=== PATIENT | female | born 1965 | race Caucasian/White ===

== ENCOUNTER 2024-06-27 16:59 | Inpatient (IN) | payer OTHER ==
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
[2024-06-27 17:30] LABS: ALT 11 U/L (4-34); AST 25 U/L (14-36); African American GFR (CKD) >90 (>60 ml/min/1.73 sqM); Albumin 2.9 g/dL (3.5-5.0); Alkaline Phosphatase 79 U/L (38-126); Anion Gap 6 mmol/L; Blood Urea Nitrogen 18 mg/dL (7-17); Calcium 7.3 mg/dL (8.4-10.2); Carbon Dioxide 16 mmol/L (22-30); Chloride 117 mmol/L (98-107); Glucose 149 mg/dL (74-99); Lipase 1709 U/L (23-300); Magnesium 1.5 mg/dL (1.6-2.3); Non-African American GFR(CKD) >90 (>60 ml/min/1.73 sqM); Potassium 2.9 mmol/L (3.5-5.1); Sodium 139 mmol/L (137-145); Total Bilirubin 0.3 mg/dL (0.2-1.3); Total Protein 5.5 g/dL (6.3-8.2)
[2024-06-27 17:41] LABS: NT-Pro-B-Type Natriuretic Pept 422 pg/mL
[2024-06-27 17:50] LABS: INR 0.9 (<1.2); Prothrombin Time 9.9 sec (10.0-12.5)
[2024-06-27] MEDS ORDERED: LORazepam 1 MG TAB PO PRN ×3 (17:59)
[2024-06-27] MEDS ORDERED: LORazepam 0.5 MG TAB PO PRN (17:59)
[2024-06-27] MEDS ORDERED: NALOXONE 0.4 MG/ML 1 ML VIAL IV PRN (17:59)
[2024-06-27] MEDS ORDERED: LORazepam 2 MG/ML INJ IV PRN ×3 (17:59)
[2024-06-27 18:03] LABS: Basophils # (A) 0.1 k/uL (0-0.2); Basophils % (A) 1 %; Eosinophils # (A) 0.1 k/uL (0-0.7); Eosinophils % (A) 1 %; HCT 36.5 % (34.0-46.0); HGB 11.8 gm/dL (11.4-16.0); Lymphocytes # (A) 1.7 k/uL (1.0-4.8); Lymphocytes % (A) 17 %; MCH 30.8 pg (25.0-35.0); MCHC 32.4 g/dL (31.0-37.0); MCV 95.2 fL (80.0-100.0); Mean Platelet Volume 8.7; Monocytes # (A) 0.3 k/uL (0-1.0); Monocytes % (A) 3 %; Neutrophils # (A) 7.7 k/uL (1.3-7.7); Neutrophils % (A) 77 %; Platelet Count 218 k/uL (150-450); RBC 3.83 m/uL (3.80-5.40); RDW 13.3 % (11.5-15.5)
[2024-06-27] MEDS: MAGNESIUM OXIDE 400 MG TAB PO STA ×2 (18:30)
[2024-06-27] MEDS: LORazepam 2 MG/ML INJ IV STA (18:30)
[2024-06-27] MEDS: SODIUM CHLORIDE 0.9% 1,000 ML IV STA (18:31)
[2024-06-27] MEDS: MAGNESIUM SULFATE-D5W PMX 1 GM in DEXTROSE/WATER 1 100ML.BAG IVPB ONE (18:31)
[2024-06-27] MEDS: SODIUM CHLORIDE 0.9% 500 ML 500 ML IV STA (18:32)
[2024-06-27] MEDS: ONDANSETRON 4 MG/2 ML VIAL IVP PRN (18:32)
[2024-06-27] MEDS: SODIUM CHLORIDE 0.9% 1,000 ML IV SCH (18:32)
[2024-06-27] MEDS: POTASSIUM BICARBONATE/CIT AC 20 MEQ TABLET.EFF PO ONE (18:37)
--- NOTE | 2024-06-27 19:22 | CT ---
EXAMINATION TYPE: CT angio chest DATE OF EXAM: 06/27/2024 7:00 PM COMPARISON: None CLINICAL INDICATION: Female, 58 years old with history of cp; Pt c/o substernal chest pain started ap louisa 30minutes ago. Significant cardiac history, VT, stents and bypass. TECHNIQUE/CONTRAST: CTA scan of the thorax is performed with IV Contrast, patient injected with 100 ml mL of Isovue 370, MIP images are created and reviewed these are created on a separate workstation.. CT DLP: Combined DLP of 1043.1 mGycm, Automated exposure control for dose reduction was used. FINDINGS: Lungs/Pleura: No evidence of focal consolidation, pleural effusion or pneumothorax. Mild paraseptal a nd centrilobular emphysema changes. Airway: Large airways are patent. Heart: Heart is within normal limits for size. Coronary stents and calcifications. Vasculature: There is no evidence for a filling defect within the pulmonary vasculature to suggest acute pulmonary embo lism. The pulmonary artery is of normal size. Mediastinum: No gross evidence of adenopathy. Musculoskeletal: No acute osseous abnormalities, sternotomy wires present. Soft Tissues/lymph nodes: Unremarkable. Lower neck: No significant findings. Upper Abdomen: No significant findings. IMPRESSION: 1. No evidence of pulmonary embolism. 2. No evidence for acute thoracic process. [facility], , 06/27/2024 7:20 PM
--- NOTE | 2024-06-27 19:24 | CT ---
EXAMINATION TYPE: CT abdomen pelvis w con DATE OF EXAM: 06/27/2024 7:00 PM COMPARISON: None CLINICAL INDICATION: Female, 58 years old with history of pancreatitis; Pt c/o substernal chest pain started aprox 30minutes ago. Significant cardiac history, NM, stents and bypass. TECHNIQUE: Axial CT abdomen pelvis w con;Sagittal and coronal reformats were created on a separate w orkstation. Contrast used:100 ml mL of Isovue 370 with IV Contrast, (none if empty) Oral contrast used: without Oral Contrast (none if empty) CT DLP: Combined DLP of 1043.1 mGycm, Automated exposure control for dose reduction was used. FINDINGS: LOWER CHEST: Unremarkable ABDOMEN LIVER: Unremarkable GALLBLADDER AND BILE DUCTS: Unremarkable. PANCREAS: No evidence or peripancreatic fat stranding. SPLEEN: Unremarkable. ADRENAL GLANDS: Unremarkable. KIDNEYS AND URETERS: No evidence of hydronephrosis or renal calculus. The ureters are unremarkable. PELVIS BLADDER: No evidence for wall thickening or mass given limitations of exam. REPRODUCTIVE: Unremarkable. ABDOMEN & PELVIS STOMACH AND BOWEL: No evidence of bowel obstruction. The appendix is normal. PERITONEUM/RETROPERITONEUM: No evidence of pneumoperitoneum or free fluid. VASCULATURE: No evidence of aortic aneurysm. MUSCULOSKELETAL: No acute osseous abnormalities LYMPH NODES: No gross evidence for lymphadenopathy. SOFT TISSUE/ABDOMINAL WALL: Tiny fat-containing umbilical hernia. IMPRESSION: No evidence for acute abdominal process. Pancreas has a normal appearance. [facility], , 06/27/2024 7:22 PM
--- NOTE | 2024-06-27 20:38 | US ---
EXAMINATION TYPE: US gallbladder DATE OF EXAM: 06/27/2024 COMPARISON: CT today CLINICAL INDICATION: Female, 58 years old with history of pain; Patient states chest pain. Patient st ates she recently ate TECHNIQUE: Grayscale and color Doppler imaging of the right upper quadrant was performed. FINDINGS: EXAM MEASUREMENTS: Liver Length: 15.9 cm Gallbladder Wall: 0.2 cm CBD: 0.4 cm Right Kidney: 10.1 x 4.5 x 4.4 cm RUSSIAN HISTORY PROFESSOR NOTES:Limited due to overlying gas and patient unable to hold breath Pancreas: Obscured by bowel gas Liver: wnl Gallbladder: Slightly contracted due to post prandial status, wnl as best seen Evidence for sonographic Cotto's sign: No CBD: wnl Right Kidney: wnl as best seen IMPRESSION: No evidence for acute process. [facility], , 06/27/2024 8:35 PM
[2024-06-27] MEDS: HEPARIN SODIUM 1,000 UN/ML (10ML VL) IV ONE (22:23)
[2024-06-27] MEDS: HEPARIN SOD,PORK IN 0.45% NACL 25,000 UNIT in 0.45% NACL 1 250ML.BAG IV SCH (22:24)
[2024-06-27] MEDS: ASPIRIN 81 MG PO STA (22:26)
[2024-06-28] MEDS: MORPHINE SULFATE 4 MG/ML SYRINGE IV PRN (00:09)
[2024-06-28 05:08] LABS: Basophils # (A) 0.1 k/uL (0-0.2); Basophils % (A) 1 %; Eosinophils # (A) 0.2 k/uL (0-0.7); Eosinophils % (A) 2 %; HCT 41.2 % (34.0-46.0); HGB 13.7 gm/dL (11.4-16.0); Lymphocytes # (A) 2.6 k/uL (1.0-4.8); Lymphocytes % (A) 25 %; MCH 31.2 pg (25.0-35.0); MCHC 33.4 g/dL (31.0-37.0); MCV 93.4 fL (80.0-100.0); Mean Platelet Volume 8.7; Monocytes # (A) 0.5 k/uL (0-1.0); Monocytes % (A) 5 %; Neutrophils # (A) 6.7 k/uL (1.3-7.7); Neutrophils % (A) 66 %; Platelet Count 266 k/uL (150-450); RBC 4.41 m/uL (3.80-5.40); RDW 13.1 % (11.5-15.5); WBC 10.1 k/uL (3.8-10.6)
[2024-06-28 05:21] LABS: ALT 11 U/L (4-34); AST 29 U/L (14-36); African American GFR (CKD) >90 (>60 ml/min/1.73 sqM); Albumin 3.7 g/dL (3.5-5.0); Alkaline Phosphatase 96 U/L (38-126); Anion Gap 3 mmol/L; Blood Urea Nitrogen 17 mg/dL (7-17); Calcium 8.3 mg/dL (8.4-10.2); Carbon Dioxide 22 mmol/L (22-30); Chloride 115 mmol/L (98-107); Glucose 85 mg/dL (74-99); Magnesium 2.7 mg/dL (1.6-2.3); Non-African American GFR(CKD) 80 (>60 ml/min/1.73 sqM); Potassium 4.3 mmol/L (3.5-5.1); Sodium 140 mmol/L (137-145); Total Bilirubin 0.4 mg/dL (0.2-1.3); Total Protein 6.5 g/dL (6.3-8.2)
[2024-06-28] MEDS: HEPARIN SODIUM 1,000 UN/ML (10ML VL) IV PRN (05:22)
[2024-06-28] MEDS ORDERED: ASPIRIN 325 MG TAB PO SCH (09:00)
[2024-06-28] MEDS: NITROGLYCERIN OINT 1 INCH/GM PACKET TOPICAL SCH (09:32)
[2024-06-28] MEDS: THIAMINE 100 MG TAB PO SCH (09:32)
[2024-06-28] MEDS: lisinopriL 10 MG TAB PO SCH (09:32)
[2024-06-28] MEDS: MULTIVITAMINS, THERA 1 EACH TAB PO SCH (09:32)
[2024-06-28] MEDS: ASPIRIN 81 MG PO SCH (09:32)
[2024-06-28] MEDS: FOLIC ACID 1 MG TAB PO SCH (09:32)
[2024-06-28] MEDS: PANTOPRAZOLE 40 MG/10 ML VIAL IV SCH (09:33)
[2024-06-28] MEDS: SERTRALINE 100 MG TAB PO SCH (10:25)
[2024-06-28] MEDS: LEVOTHYROXINE 137 MCG TAB PO SCH (10:25)
[2024-06-28] MEDS: FLUTICASONE NASAL 50MCG/SPRAY 16GM BTL EA NOSTRIL SCH (10:34)
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
[2024-06-28 11:38] LABS: African American GFR (CKD) 86 (>60 ml/min/1.73 sqM); Amylase 85 U/L (30-110); Anion Gap 4 mmol/L; Blood Urea Nitrogen 14 mg/dL (7-17); Calcium 8.8 mg/dL (8.4-10.2); Carbon Dioxide 27 mmol/L (22-30); Chloride 112 mmol/L (98-107); Glucose 88 mg/dL (74-99); Lipase 196 U/L (23-300); Non-African American GFR(CKD) 74 (>60 ml/min/1.73 sqM); Sodium 143 mmol/L (137-145)
--- NOTE | 2024-06-28 13:45 | XR ---
EXAMINATION TYPE: XR chest 1V portable DATE OF EXAM: 06/28/2024 1:39 PM COMPARISON: None CLINICAL INDICATION: Female, 58 years old with history of chf; TECHNIQUE: XR chest 1V portable Frontal view of the chest. FINDINGS: Lungs/Pleura: There is no evidence of pleural effusion, focal consolidation, or pneumothorax. Pulmonary vascularity: Unremarkable. Heart/mediastinum: Cardiomediastinal silhouette is unremarkable. Musculoskeletal: No acute osseous pathology. IMPRESSION: No acute cardiopulmonary disease/process. [facility], , 06/28/2024 1:42 PM
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
[2024-06-28] MEDS: ATORVASTATIN 80 MG TAB PO SCH (20:53)
[2024-06-28] MEDS ORDERED: NON FORMULARY DRUG (Rosuvastatin Calcium [Crestor] 40 MG Tablet) PO SCH (21:00)
[2024-06-29 07:36] LABS: Basophils % (A) 0 %; Eosinophils # (A) 0.1 k/uL (0-0.7); Eosinophils % (A) 1 %; HGB 13.4 gm/dL (11.4-16.0); Lymphocytes % (A) 15 %; MCH 29.8 pg (25.0-35.0); MCHC 31.9 g/dL (31.0-37.0); MCV 93.5 fL (80.0-100.0); Mean Platelet Volume 8.8; Monocytes # (A) 0.4 k/uL (0-1.0); Monocytes % (A) 3 %; Neutrophils # (A) 10.4 k/uL (1.3-7.7); Neutrophils % (A) 80 %; Platelet Count 267 k/uL (150-450); RBC 4.49 m/uL (3.80-5.40)
[2024-06-29] MEDS ORDERED: NITROGLYCERIN SL TABS 0.4 MG TAB SUBLINGUAL PRN ×2 (09:03→13:33)
[2024-06-29] MEDS ORDERED: ALPRAZolam 0.5 MG TAB PO PRN (09:03)
[2024-06-29] MEDS: LORATADINE 10 MG TAB PO SCH (09:32)
[2024-06-29] MEDS: ASPIRIN 325 MG TAB PO STA (09:32)
[2024-06-29] MEDS: ALPRAZolam 0.25 MG TAB PO PRN (09:32)
[2024-06-29] MEDS: ATORVASTATIN 80 MG TAB PO STA (09:32)
[2024-06-29 09:34] LABS: African American GFR (CKD) >90 (>60 ml/min/1.73 sqM); Anion Gap 8 mmol/L; Blood Urea Nitrogen 14 mg/dL (7-17); Calcium 8.8 mg/dL (8.4-10.2); Carbon Dioxide 20 mmol/L (22-30); Chloride 113 mmol/L (98-107); Glucose 93 mg/dL (74-99); Non-African American GFR(CKD) 84 (>60 ml/min/1.73 sqM); Potassium 4.2 mmol/L (3.5-5.1); Sodium 141 mmol/L (137-145)
[2024-06-29] MEDS: SODIUM CHLORIDE 0.9% 1,000 ML in EMPTY BAG 1 BAG IV SCH ×2 (09:34→23:37)
--- NOTE | 2024-06-29 09:40 | NM ---
EXAMINATION TYPE: NM hepatobiliary w CCK DATE OF EXAM: 06/29/2024 8:50 AM COMPARISON: 06/27/2024 CLINICAL INDICATION:Female, 58 years old with history of RUQ pain; TECHNIQUE: The patient was given 5.1 mCi of Technetium 99m-Mebrofenin as a radiotracer and multiple scintigraphic images were obtained of the abdomen. Gallbladder function was also assessed after the a dministration of 1.4 mcg of Kinevac (cholecystokinin) and additional scintigraphic images were obtain ed of the abdomen. A region of interest was drawn over the gallbladder and a timing activity curve wa s generated. The gallbladder ejection fraction was calculated. FINDINGS: Normal uptake of radiotracer was identified within the liver with excretion into the hepatic and comm on biliary ducts within 12 min . There was normal progressive washout of the liver over the course of the study. Radiotracer uptake within the gallbladder at 10 minutes as well as small bowel activity w as identified at 34 minutes. Maximum calculated gallbladder ejection fraction is: 4% at 27minutes (Normal gallbladder ejection fraction is > 35%) IMPRESSION: 4% ejection fraction, ejection fraction of <33% (may be 35 to 40% depending on different protocols at different institutions) after 60 min is indicative of impaired gallbladder emptying and gallbladder dysfunction. [facility], , 06/29/2024 9:37 AM
[2024-06-29] MEDS: SODIUM CHLORIDE 0.9% 1,000 ML IV ONE (11:52)
[2024-06-29] MEDS: HEPARIN SODIUM,PORCINE 10,000 UNIT in SODIUM CHLORIDE 0.9% 1,000 ML IRRIGATION ONE (11:53)
[2024-06-29] MEDS: HEPARIN SODIUM,PORCINE (1 ML) 2,500 UNIT in SODIUM CHLORIDE 0.9% 250 ML IRRIGATION ONE (11:53)
[2024-06-29] MEDS: fentaNYL (PF) 50 MCG/ML 2 ML AMP IVP ONE (11:54)
[2024-06-29] MEDS: LIDOCAINE 1% INJ 10MG/ML (20 ML MDV) SQ ONE (12:01)
[2024-06-29] MEDS: MIDAZOLAM 2 MG/2 ML VIAL IVP ONE (12:03)
[2024-06-29] MEDS: VERAPAMIL SYRINGE (5 MG/10 ML) INTRAARTER ONE (12:06)
[2024-06-29] MEDS: HEPARIN SODIUM 1,000 UN/ML (10ML VL) IVP ONE ×4 (12:11→12:50)
[2024-06-29] MEDS: CLOPIDOGREL 75 MG TAB PO ONE (12:19)
[2024-06-29] MEDS: IOPAMIDOL-370 100ML BTL INJ ONE ×2 (13:19)
--- NOTE | 2024-06-29 13:24 | P.PN ---
Subjective Progress Note Date: 06/29/24 SURGICAL PROGRESS NOTE CHIEF COMPLAINT: Chest pain HISTORY OF PRESENT ILLNESS: Patient scheduled for heart catheterization today with cardiology service. Patient denies any abdominal pain. Denies any nausea or vomiting. HIDA scan completed and reports EF of 4% is indicative of impaired gallbladder emptying and gallbladder dysfunction. PHYSICAL EXAM: VITAL SIGNS: Reviewed. GENERAL: Well-developed in no acute distress. ABDOMEN: Soft. Nondistended. Nontender. NEUROLOGIC: Alert and oriented. Cranial nerves II through XII grossly intact. ASSESSMENT: 1. Hypokinetic gallbladder with a EF of 4% 2. Non-ST elevated AK PLAN: -Patient is tentatively boarded for laparoscopic cholecystectomy on Wednesday with Dr. Cleveland pending cardiac clearance Physician Cad Detailer note has been reviewed by physician. Signing provider agrees with the documented findings, assessment, and plan of care. Objective - Vital Signs Vital signs: Vital Signs Temp 98.3 F 06/29/24 11:03 Pulse 54 L 06/29/24 11:03 Resp 16 06/29/24 11:03 BP 122/57 06/29/24 11:03 Pulse Ox 98 06/29/24 11:05 FiO2 Intake & Output 06/28/24 06/29/24 06/29/24 18:59 06:59 18:59 Intake Total 68.373 122.849 410 Balance 68.373 122.849 410 Weight 70.307 kg 71.8 kg Intake: IV 410 Invasive Line 3 10 Intake, IV Titration 68.373 122.849 Amount Heparin Sod,Pork in 0.45% 68.373 122.849 NaCl 25,000 unit In 0.45 % NaCl 1 250ml.bag @ 12 UNITS/KG/HR 8.437 mls/hr IV .Q24H [facility] Rx#: [id number] Other: Voiding Method Toilet Toilet # Voids 2 - Labs CBC & Chem 7: 06/29/24 06:40 06/29/24 06:40 Labs: Abnormal Lab Results - Last 24 Hours (Table) 06/29/24 06/29/24 06/29/24 Range/Units 06:40 06:40 06:40 WBC 13.0 H (3.8-10.6) k/uL Neutrophils # 10.4 H (1.3-7.7) k/uL APTT 54.4 H (22.0-30.0) sec Chloride 113 H (98-107) mmol/L Carbon Dioxide 20 L (22-30) mmol/L
[2024-06-29] MEDS ORDERED: MAG HYDROX/AL HYDROX/SIMETH 30 ML CUP PO PRN (13:33)
[2024-06-29] MEDS ORDERED: ATROPINE SULFATE 0.1 MG/ML 10ML SYRINGE IV PRN (13:33)
[2024-06-29] MEDS ORDERED: RX INFO: IV CONTRAST WAS GIVEN 1 EACH MISC MISCELLANE PRN (13:33)
[2024-06-29] MEDS ORDERED: ZOLPIDEM 5 MG TAB PO PRN (13:33)
--- NOTE | 2024-06-29 13:51 | P.CARDCATH ---
Date of Procedure: 06/29/24 Description of Procedure: Cardiac Catheterization: The patient is a 58-year-old female with a known history of CAD status post multiple stenting, CABG who presented with symptoms of chest discomfort and evidence of non-STEMI. Recommendations were made regarding cardiac catheterization, the risks and the complications were discussed with the patient who is in full understanding and agreement. Procedure Description: Patient was brought to lab rn in fasting semi-sedated state after receiving Fentanyl and Benadryl achieiving moderate conscious sedated state. Using Xylocaine Anesthesia and modified Seldinger technique, a 6-Indonesian sheath was introduced in the left radial artery . Subsequently, selective coronary angiography was performed using a 5-Indonesian 4 bend Jessica catheter. Multiple views of the coronary artery including hemiaxial views were obtained. The right Jessica catheter was used to cross the aortic valve and LVEDP was calculated. The right Jessica was used to cannulate the PALMER to the LAD. PCI: After removing the catheters a 6 Indonesian FL 4 guiding catheter was used to cannulate the left main. A 0.014 BMW J-wire was positioned in the distal left circumflex. Subsequently a 2.5 x 12 mm trek balloon was advanced and 1 inflation at 8 karl was done. After removing the balloon a Navera eye IVUS catheter was introduced and showed a noncalcified lesion with a distal vessel of 2.5 mm. After removing the catheter a 2.5 x 18 mm Xience kassandra point stent was deployed at 16 karl. After removing the wire images were obtained and revealed stable successful stenting. Subsequently the catheter was removed and a 6 Indonesian AL 0.75 guiding catheter was introduced in the ostium of the RCA was cannulated. Subsequently a 0.014 BMW J-wire was positioned in the distal RCA. A 2.5 by 12 mm NC trek balloon was advanced and inflations at 8 karl were done. IVUS imaging was performed and revealed new intimal hyperplasia with multilayer stenting proximally. After removing the catheter a 3.25 x 38 mm Xience kassandra point stent was advanced and deployed at 16 karl. After removing the catheter a 3.5 x 20 mm NC trek balloon was advanced and multiple inflations were done at 10 karl. Repeat IVUS imaging was performed and showed good apposition of the stent. Subsequently the wire was removed and images revealed successful stenting. Following that, catheter and sheath were removed. Hemostasis was obtained with deployment of vascular band . There was no immediate complication. Patient was returned to room in stable condition. Of note, the patient received a total of 7500 units of intravenous heparin as well as intra-arterial verapamil. She received an oral loading dose of clopidogrel. She had chest discomfort and EKG changes with the inflations that resolved at the end of the procedure. Findings: Left main: This is a short size vessel, almost double barrel vessel, bifurcating into LAD and left circumflex, left main has no obstructive disease LAD: This vessel is totally occluded proximally with no significant antegrade flow Left circumflex: This is a nondominant vessel giving rise to 2 obtuse marginal branch. The left circumflex after the takeoff of the first obtuse marginal branch has a 99% stenosis with slow flow distally and haziness in the lesion RCA: This is a large dominant vessel, bifurcating distally to PDA and PLV. There is stent extending from the ostium to the mid segment with what appears to be multilayer stent in the proximal area. The mid area has a 99% in-stent restenosis and there is plaque distal to the stent of about 70 to 80%. Intimal disease in the PLV and PDA were noted. PALMER to the LAD: The distal anastomotic site is patent the flow into the LAD is brisk there is no obstructive disease Left Ventriculogram: Not performed Hemodynamics: There was no gradient across the aortic valve, LVEDP was 12-16 mmHg Conclusion: 1. Chronically occluded proximal LAD 2. Patent PALMER to the LAD 3. Severe stenosis in the proximal left circumflex 4. Severe in-stent restenosis in the mid RCA 5. Successful stenting of the proximal left circumflex with reduction of stenosis from 99% to 0% with IVUS imaging and MARY-3 flow 6. Successful stenting of the mid and proximal RCA with reduction of stenosis from 99% to less than 5% with IVUS imaging and MARY-3 flow Recommendations: The patient will continue on dual antiplatelet treatment with aspirin and clopidogrel for 1 year without any interruption in addition to aggressive coronary risks modification, attempting to maintain LDL below 70 mg/dL. The findings and the recommendations were discussed with the patient and she was in full understanding and agreement. Attempt to contact the family were unsuccessful. Duration of sedation is 76 minutes.
[2024-06-29 14:10] VITALS: BMI 26.3
[2024-06-29] MEDS: lisinopriL 10 MG TAB PO SCH (20:39)
[2024-06-29 21:27] VITALS: RESP 16
--- NOTE | 2024-06-30 04:24 | P.PN ---
Subjective Progress Note Date: 06/29/24 This is a 58-year-old female who was recently admitted with chest pain along with right upper quadrant abdominal pain and undergoing severe social stressors with personal life. Patient was noted to have elevated troponin with significant cardiac history and started on heparin. Cardiology evaluated the patient and plan is for cardiac catheterization today. Patient also being evaluated by general surgery and HIDA scan is ordered and pending for today. Review of systems: Constitutional: No reports of fatigue, fever, or chills, reports increased anxiety Cardiovascular: No reports of chest pain or palpitations Respiratory: No reports of shortness of breath or cough GI: No reports of nausea, no reports of vomiting, no diarrhea : No reports of dysuria or retention Neurovascular: No reports of generalized weakness All medications have been reviewed PHYSICAL EXAMINATION: GENERAL: The patient is alert and oriented x4, Well developed, well nourished. Appears older than stated age HEENT: Pupils are round and equally reacting to light. EOMI. no scleral icterus. No conjunctival pallor. Normocephalic, atraumatic. No pharyngeal erythema. No thyromegaly. CARDIOVASCULAR: S1 and S2 muffled PULMONARY: diminished breath sounds bilaterally with no wheezing or rhonchi noted. ABDOMEN: soft. Nontender on exam. non-distended, normoactive bowel sounds. No palpable organomegaly. MUSCULOSKELETAL: No joint swelling or deformity. EXTREMITIES: No cyanosis, clubbing, or pedal edema. NEUROLOGICAL: Gross neurological examination did not reveal any focal deficits. SKIN: No rashes. Assessment: Chest pain with troponin 0.597, acute NSTEMI History of coronary artery disease with previous stenting Hypertension history Hyperlipidemia History of congestive heart failure History of myocardial infarction Anxiety, depression history THC use GI prophylaxis DVT prophylaxis Full code Plan: Recommend to continue with current medications and management with cardiology and general surgery following Patient is scheduled to undergo a HIDA scan which is pending at this time Cardiology following recommending cardiac catheterization today and will await official report. Continued on heparin per cardiology for now Recommend [facility] outpatient Appropriate home medications have been reviewed and resumed Will follow-up on repeat labs and await cardiology clearance Possible discharge planning in the next 24 hours. The impression and plan of care has been dictated by Pooja Cardenas, nurse practitioner as directed. Dr. Tio MD I have performed a history and examination and MDM of this patient, discussed the same with the dictator, and agree with the dictator's assessment and plan as written ,documented as a scribe. Based on total visit time, I have performed more than 50% of the visit. Any additional findings or plans will be noted. Objective - Vital Signs Vital signs: Vital Signs Temp 98.3 F 06/29/24 11:03 Pulse 59 L 06/29/24 14:18 Resp 17 06/29/24 14:18 BP 142/68 06/29/24 14:18 Pulse Ox 98 06/29/24 14:18 FiO2 Intake & Output 06/28/24 06/29/24 06/29/24 18:59 06:59 18:59 Intake Total 68.373 122.849 420 Balance 68.373 122.849 420 Weight 70.307 kg 71.8 kg 71.8 kg Intake: IV 420 Invasive Line 3 20 Intake, IV Titration 68.373 122.849 Amount Heparin Sod,Pork in 0.45% 68.373 122.849 NaCl 25,000 unit In 0.45 % NaCl 1 250ml.bag @ 12 UNITS/KG/HR 8.437 mls/hr IV .Q24H [facility] Rx#: [id number] Other: Voiding Method Toilet Toilet Toilet # Voids 2 4 - Labs CBC & Chem 7: 06/29/24 06:40 06/29/24 06:40 Labs: Abnormal Lab Results - Last 24 Hours (Table) 06/29/24 06/29/24 06/29/24 Range/Units 06:40 06:40 06:40 WBC 13.0 H (3.8-10.6) k/uL Neutrophils # 10.4 H (1.3-7.7) k/uL APTT 54.4 H (22.0-30.0) sec Chloride 113 H (98-107) mmol/L Carbon Dioxide 20 L (22-30) mmol/L
[2024-06-30 06:59] LABS: Basophils % (A) 0 %; Eosinophils # (A) 0.1 k/uL (0-0.7); Eosinophils % (A) 1 %; HCT 41.7 % (34.0-46.0); HGB 13.3 gm/dL (11.4-16.0); Lymphocytes # (A) 1.5 k/uL (1.0-4.8); Lymphocytes % (A) 14 %; MCV 93.8 fL (80.0-100.0); Mean Platelet Volume 8.6; Monocytes # (A) 0.4 k/uL (0-1.0); Monocytes % (A) 4 %; Neutrophils # (A) 8.6 k/uL (1.3-7.7); Neutrophils % (A) 80 %; Platelet Count 251 k/uL (150-450); RBC 4.44 m/uL (3.80-5.40); RDW 13.4 % (11.5-15.5); WBC 10.7 k/uL (3.8-10.6)
[2024-06-30] MEDS ORDERED: HEPARIN SODIUM,PORCINE 10,000 UNIT in SODIUM CHLORIDE 0.9% 1,000 ML IRRIGATION PRN (07:00)
[2024-06-30] MEDS ORDERED: HEPARIN SODIUM,PORCINE (1 ML) 2,500 UNIT in SODIUM CHLORIDE 0.9% 250 ML IRRIGATION PRN (07:00)
[2024-06-30 08:28] LABS: African American GFR (CKD) 86 (>60 ml/min/1.73 sqM); Anion Gap 5 mmol/L; Blood Urea Nitrogen 10 mg/dL (7-17); Carbon Dioxide 22 mmol/L (22-30); Chloride 113 mmol/L (98-107); Glucose 91 mg/dL (74-99); Non-African American GFR(CKD) 75 (>60 ml/min/1.73 sqM); Potassium 4.1 mmol/L (3.5-5.1); Sodium 140 mmol/L (137-145)
[2024-06-30] MEDS: CLOPIDOGREL 75 MG TAB PO SCH (09:09)
[2024-06-30 09:15] VITALS: TEMP 97.8
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
[2024-06-30 11:23] VITALS: BP 140/74; PULSE 64
--- NOTE | 2024-06-30 12:52 | CA ---
Transthoracic Echo Report Name: Rosa Momin Age: 58 Gender: F : 1965 Exam Date: 06/30/2024 08:35 Exam Location: [facility] Ht (in): 65 Wt (lb): 155 Ordering Physician: Page Chinchilla Attending/Referring Phys: [id number], Renée Technical Sales Director Nu Bliss RDCS Procedure CPT: Indications: LV function, chest pain Cardiac Hx: Technical Quality: Good Contrast 1: Total Dose (mL): Contrast 2: Total Dose (mL): MEASUREMENTS (Male / Female) Normal Values 2D ECHO LV Diastolic Diameter PLAX 4.7 cm 4.2 - 5.9 / 3.9 - 5.3 cm LV Systolic Diameter PLAX 3.6 cm IVS Diastolic Thickness 1.0 cm 0.6 - 1.0 / 0.6 - 0.9 cm LVPW Diastolic Thickness 1.2 cm 0.6 - 1.0 / 0.6 - 0.9 cm LV Relative Wall Thickness 0.5 LVOT Diameter 2.1 cm LV Diastolic Volume MOD BP 123.0 cm??? 67 - 155 / 56 - 104 cm??? LV Systolic Volume MOD BP 56.0 cm??? 22 - 58 / 19 - 49 cm??? LV Ejection Fraction MOD BP 54.5 % >= 55 % LV Cardiac Index MOD BP 2629.2 cm???/min???m??? LV Diastolic Volume MOD 4C 127.4 cm??? LV Systolic Volume MOD 4C 52.2 cm??? LV Ejection Fraction MOD 4C 59.1 % LV Cardiac Index MOD 4C 2951.9 cm???/min???m??? LV Diastolic Length 4C 8.7 cm LV Systolic Length 4C 7.4 cm LV Diastolic Volume MOD 2C 118.9 cm??? LV Systolic Volume MOD 2C 60.5 cm??? LV Ejection Fraction MOD 2C 49.1 % LV Cardiac Index MOD 2C 2290.7 cm???/min???m??? LV Diastolic Length 2C 8.7 cm LV Systolic Length 2C 7.4 cm LA Volume 70.7 cm??? 18 - 58 / 22 - 52 cm??? LA Volume Index 39.1 cm???/m??? 16 - 28 cm???/m??? Ascending Aorta Diameter 3.2 cm DOPPLER AV Peak Velocity 132.9 cm/s AV Peak Gradient 7.1 mmHg AV Mean Velocity 89.7 cm/s AV Mean Gradient 3.7 mmHg AV Velocity Time Integral 28.7 cm LVOT Peak Velocity 91.1 cm/s LVOT Peak Gradient 3.3 mmHg LVOT Velocity Time Integral 20.6 cm LVOT Stroke Volume 74.2 cm??? LVOT Stroke Volume Index 41.8 ml/m??? LVOT Cardiac Index 2912.0 cm???/min???m??? AV Area Cont Eq vti 2.6 cm??? AV Area Cont Eq pk 2.5 cm??? MV Area PHT 4.5 cm??? Mitral E Point Velocity 84.6 cm/s Mitral A Point Velocity 63.9 cm/s Mitral E to A Ratio 1.3 MV Deceleration Time 166.8 ms TR Peak Velocity 245.6 cm/s TR Peak Gradient 24.1 mmHg Right Atrial Pressure 5.0 mmHg Pulmonary Artery Systolic Pressu 29.1 mmHg Right Ventricular Systolic Press 29.1 mmHg PV Peak Velocity 103.3 cm/s PV Peak Gradient 4.3 mmHg FINDINGS Left Ventricle Left ventricular ejection fraction is estimated at 45-50 %. Mildly increased posterior wall thickness. Moderately increased left ventricular diastolic volume. Mildly increased left ventricular systolic volume. Mildly decreased left ventricular ejection fraction. Global hypokinesis. Right Ventricle Normal right ventricular size with mild to moderately reduced function. Right ventricular systolic pressure within normal limits. Right Atrium Normal right atrial size. Left Atrium Moderately increased left atrial volume. Mildly increased left atrial area. Mitral Valve Structurally normal mitral valve. No evidence for mitral valve prolapse. No mitral stenosis. Mild to moderate mitral regurgitation. Aortic Valve Trileaflet aortic valve. No aortic valve stenosis or regurgitation. Tricuspid Valve Structurally normal tricuspid valve. No tricuspid stenosis. Mild tricuspid regurgitation. Pulmonic Valve Structurally normal pulmonic valve. No pulmonic stenosis. Mild pulmonic regurgitation. Pericardium No pericardial effusion. Aorta Normal size aortic root and proximal ascending aorta. CONCLUSIONS Mildly impaired LV function with EF between 45 to 50% Mild to moderate mitral regurgitation No pericardial effusion Previewed by: Dr. Angelito Chen MD (Electronically Signed) Final Date: 30 June 2024 12:51
--- NOTE | 2024-06-30 13:36 | P.PN ---
Subjective Progress Note Date: 06/30/24 SURGICAL PROGRESS NOTE CHIEF COMPLAINT: Chest pain HISTORY OF PRESENT ILLNESS: Patient is status post heart catheterization with 2 stent placement. She has been started on aspirin and Plavix. She denies any abdominal pain. She is scheduled for discharge today. She is tolerating diet. Afebrile. WBC 10.7 PHYSICAL EXAM: VITAL SIGNS: Reviewed. GENERAL: Well-developed in no acute distress. ABDOMEN: Soft. Nondistended. Nontender. NEUROLOGIC: Alert and oriented. Cranial nerves II through XII grossly intact. ASSESSMENT: 1. Chronic cholecystitis, hypokinetic gallbladder with a EF of 4% 2. Non-ST elevated TX PLAN: -Recommend laparoscopic cholecystectomy outpatient when medically stable Physician Correspondence Specialist note has been reviewed by physician. Signing provider agrees with the documented findings, assessment, and plan of care. Objective - Vital Signs Vital signs: Vital Signs Temp 97.8 F 06/30/24 08:48 Pulse 66 06/30/24 08:48 Resp 16 06/30/24 08:48 BP 162/81 06/30/24 08:48 Pulse Ox 96 06/30/24 08:59 FiO2 Intake & Output 06/29/24 06/30/24 06/30/24 18:59 06:59 18:59 Intake Total 420 240 Balance 420 240 Weight 71.8 kg 71.8 kg Intake: IV 420 Invasive Line 3 20 Oral 240 Other: Voiding Method Toilet Toilet Toilet # Voids 4 2 - Labs CBC & Chem 7: 06/30/24 06:31 06/30/24 06:31 Labs: Abnormal Lab Results - Last 24 Hours (Table) 06/30/24 06/30/24 Range/Units 06:31 06:31 WBC 10.7 H (3.8-10.6) k/uL Neutrophils # 8.6 H (1.3-7.7) k/uL Chloride 113 H (98-107) mmol/L
--- NOTE | 2024-07-01 10:38 | P.DS ---
Providers Date of admission: 06/27/24 18:01 Expected date of discharge: 06/30/24 Attending physician: Rosalie Kinsey Consults: 06/27/24 17:59 Consult Physician Routine Consulting Provider: Keith Wasserman Consult Reason/Comments: cp Do you want consulting provider notified?: Yes 06/28/24 13:43 Consult Physician Urgent Consulting Provider: Bobo Cleveland Consult Reason/Comments: abdominal pain RUQ pain Do you want consulting provider notified?: Yes 06/29/24 13:33 Consult Physician Routine Consulting Provider: [facility] Consult Reason/Comments: Post Interventional Patient Do you want consulting provider notified?: Already Contacted Primary care physician: Physician Nonstaff Hospital Course: Final diagnosis Chest pain with troponin 0.597, acute NSTEMI status post cardiac catheterization with stenting to the proximal left circumflex and also mid proximal RCA 06/29/2024 History of coronary artery disease with previous stenting at [facility] Dr. Hilton kaplan Hypertension history Hyperlipidemia History of congestive heart failure History of myocardial infarction Anxiety, depression history THC use GI prophylaxis DVT prophylaxis Full code Discharge disposition Patient is being discharged in a stable condition with guarded prognosis to home. Patient will follow-up with Dr. Ware in the outpatient setting upon discharge. Patient was also provided additional resources for other primary care providers as she recently moved to [place]. Patient is to continue with current medications per cardiology and close outpatient follow-up with car diology as scheduled. Total time taken is greater than 35 minutes. Hospital course This is a 58-year-old female who was recently admitted with chest pain concerns of a an NSTEMI and started on heparin. Patient evaluated by cardiology recommending cardiac catheterization which was performed and patient is status post stenting to the proximal left circumflex and also mid proximal RCA. Patient does have previous history of stenting at [facility]. Patient has been instructed to continue with current medication regimen as mentioned below and also outpatient follow-up with solar business developer in the next 1 week. Patient also having some right upper quadrant abdominal pain underwent HIDA scan and discussing with general surgery about laparoscopic cholecystectomy. Patient will follow-up in the outpatient setting regarding this. Patient reports she is unsure if she has insurance and needs to look into this further. Patient reports she does have a primary care provider out in the city although recently moved to [place] and was provided resources on follow-up. Patient has been cleared by cardiology and patient reports to feeling well and would like to go home. Currently no reports of chest pain, shortness of breath, or palpitations. Patient is afebrile. No reports of nausea or vomiting and patient is tolerating diet. Patient will be discharged home today. Guarded prognosis Physical exam: Gen: This is a 58-year-old female who is awake, alert and oriented x 3, well- developed, appears older than stated age HEENT: Head is atraumatic, normocephalic. Pupils equal, round. Sclerae is anicteric. NECK: Supple. No JVD. No lymphadenopathy. No thyromegaly. LUNGS: Diminished breath sounds bilaterally otherwise clear to auscultation. No wheezes or rhonchi. No intercostal retractions. HEART: Regular rate and rhythm. No murmur. ABDOMEN: Soft. Bowel sounds are present. No masses. No tenderness. EXTREMITIES: No pedal edema. No calf tenderness. NEUROLOGICAL: Patient is awake, alert and oriented x3. Cranial nerves 2 through 12 are grossly intact. Please refer to medication reconciliation sheet for a list of medications. The impression and plan of care has been dictated by Pooja Cardenas, Nurse Practitioner as directed. Dr. Tio MD I have performed a history and examination and MDM of this patient, discussed the same with the dictator, and agree with the dictator's assessment and plan as written ,documented as a scribe. Based on total visit time, I have performed more than 50% of the visit. Patient Condition at Discharge: Fair Plan - Discharge Summary Discharge Rx Participant: No New Discharge Prescriptions: New Folic Acid 1 mg PO DAILY #30 tab Thiamine [Vitamin B-1] 100 mg PO DAILY #30 tab Atorvastatin [Lipitor] 80 mg PO HS #30 tab Mag Hydrox/Al Hydrox/Simeth [Maalox] 30 ml PO Q4HR PRN ml PRN Reason: Heartburn Multivitamins, Thera [Multivitamin (formulary)] 1 each PO DAILY #30 tab Nitroglycerin Sl Tabs [Nitrostat] 0.4 mg SUBLINGUAL Q5M PRN #15 tab PRN Reason: Chest Pain lisinopriL [Zestril] 10 mg PO BID #60 tab Continue Sertraline [Zoloft] 100 mg PO DAILY Loratadine [Claritin] 10 mg PO DAILY Clopidogrel [Plavix] 75 mg PO PC-LUNCH Aspirin 81 mg PO PC-LUNCH Fluticasone Nasal [place] [Flonase Nasal [place]] 2 spr EA NOSTRIL DAILY Levothyroxine Sodium [Synthroid] 137 mcg PO AC-BRKFST Discontinued Rosuvastatin Calcium [Crestor] 40 mg PO HS lisinopriL [Zestril] 10 mg PO DAILY Discharge Medication List Aspirin 81 mg PO PC-LUNCH 06/27/24 [History] Clopidogrel [Plavix] 75 mg PO PC-LUNCH 06/27/24 [History] Fluticasone Nasal [place] [Flonase Nasal [place]] 2 spr EA NOSTRIL DAILY 06/27/24 [History] Levothyroxine Sodium [Synthroid] 137 mcg PO AC-BRKFST 06/27/24 [History] Loratadine [Claritin] 10 mg PO DAILY 06/27/24 [History] Sertraline [Zoloft] 100 mg PO DAILY 06/27/24 [History] Atorvastatin [Lipitor] 80 mg PO HS #30 tab 06/30/24 [Rx] Folic Acid 1 mg PO DAILY #30 tab 06/30/24 [Rx] Mag Hydrox/Al Hydrox/Simeth [Maalox] 30 ml PO Q4HR PRN ml 06/30/24 [Rx] Multivitamins, Thera [Multivitamin (formulary)] 1 each PO DAILY #30 tab 06/30/24 [Rx] Nitroglycerin Sl Tabs [Nitrostat] 0.4 mg SUBLINGUAL Q5M PRN #15 tab 06/30/24 [ Rx] Thiamine [Vitamin B-1] 100 mg PO DAILY #30 tab 06/30/24 [Rx] lisinopriL [Zestril] 10 mg PO BID #60 tab 06/30/24 [Rx] Follow up Appointment(s)/Referral(s): Keith Wasserman MD [STAFF PHYSICIAN] - 1 Week (Office is getting your records from the hospital and will call you with an appointment date/time.) Sendy Ware MD [STAFF PHYSICIAN] - 07/25/24 1:30 pm (New patient visit; please call office with your insurance number when you have time. Per office staff, you can call office every 2-[address] Kaba gets any openings sooner as her schedule changes daily.) [facility] [NON-STAFF] - 1 Week ([facility]; please call them at the number provided for any needed resources or appointments.) Bobo Cleveland MD [STAFF PHYSICIAN] - 07/04/24 2:20 pm Patient Instructions/Handouts: Low Fat Diet (DC), Heart Catheterization (DC) Activity/Diet/Wound Care/Special Instructions: Activity limited until follow-up Follow-up with primary care provider on discharge Follow-up with cardiology in 1 week Follow-up with general surgery outpatient in 1 week Continue taking medications as prescribed Continue heart healthy diet Discharge Disposition: HOME SELF-CARE
--- NOTE | 2024-07-03 21:04 | CDI ---
Documentation Clarification Form Date: 07/03/2024 08:43:24 PM From: Bharati Shepherd Phone: Admit Date: 06/27/2024 06:01:00 PM Patient Name: Rosa Momin Visit Number: [id number] Discharge Date: 06/30/2024 12:11:00 PM ATTENTION: The Clinical Documentation Specialists (CDI) and [facility] Coding Staff appreciate your assistance in clarifying documentation. Please respond to the clarification below the line at the bottom and electronically sign. The CDI & [facility] Coding staff will review the response and follow-up if needed. Please note: Queries are made part of the Legal Health Record. If you have any questions, please contact the author of this message via ITS. Doctor/Provider: Rosalie Kinsey Your patient has the documented diagnosis of unspecified CHF per H&P, 06/29 Progress Note and DC Summary. Additional information regarding the type of CHF is requested. History/Risk Factors: 58yo F, acute NSTEMI due to chronicallyoccludedproximal LAD, CAD w severe in-stent restenosis, HTN, HLD, CHF, Hx VT, anxiety,depressionhistory, pancreatitis, Hx THC use Clinical Indicators: VS/Pulse OX: 97-99 BNP: 422 Echo: MildlyimpairedLV function with EF between 45 to 50%. Mild to moderateMR. Nopericardial effusion Chest X Ray: No acute cardiopulmonary disease/process. Treatment: monitored In your professional opinion, can you please clarify the type of CHF if known? [ ] Chronic Systolic Heart Failure (reduced EF) [ ] Chronic Diastolic Heart Failure (preserved EF) [ ] Chronic Systolic & Diastolic Heart Failure [ ] Other, please specify [ ] Unable to determine (Template Last Revised: September 2020) Chronic Systolic Heart Failure (reduced EF) MTDD
--- NOTE | 2024-07-03 21:25 | CDI ---
Documentation Clarification Form Date: 07/03/2024 09:12:46 PM From: Bharati Shepherd Phone: Admit Date: 06/27/2024 06:01:00 PM Patient Name: Rosa Momin Visit Number: [id number] Discharge Date: 06/30/2024 12:11:00 PM ATTENTION: The Clinical Documentation Specialists (CDI) and [facility] Coding Staff appreciate your assistance in clarifying documentation. Please respond to the clarification below the line at the bottom and electronically sign. The CDI & [facility] Coding staff will review the response and follow-up if needed. Please note: Queries are made part of the Legal Health Record. If you have any questions, please contact the author of this message via ITS. Doctor/Provider: Keith Wasserman Acute NSTEMIis documented per Cath Report and throughout the Progress Notes and patient is noted to have stenosis of coronary artery stent. Please clarify if there is a relationship between the NSTEMI and stenosis of coronary artery stent. History/Risk Factors: 58yo F, acute NSTEMI due to chronicallyoccludedproximal LAD, CAD w severe in-stent restenosis, HTN, HLD, CHF, Hx NE, anxiety,depressionhistory, pancreatitis, Hx THC use Clinical Indicators: Chronicallyoccludedproximal LAD. Patent PALMER to the LAD. Severestenosisin the proximal left circumflex. Severein-stent restenosis in the mid RCA. Treatment: Successfulstentingof the proximal left circumflex withreductionof stenosisfrom 99% to 0% with IVUSimagingand MARY-3 flow. Successfulstentingof the mid and proximal RCA withreductionofstenosis from 99% to less than 5% with IVUSimagingand MARY-3 flow Please clarify the type of NE, if known: [ ] NSTEMI is due to Stenosis of coronary artery stent [ xx] NSTEMI is not due to Stenosis of coronary artery stent [ ] Unable to determine [ ] Other Condition, please specify (Template Last Revised: October 2020) NIDIAD
== END 2024-06-30 12:11 | disposition home or self-care (01) | DRG 174 ==
LOC: EC 16:59 → EEVIPCON 18:01 → 3SCARD 18:01
PROVIDERS: ADMIT Hospitalist; ATTEND Hospitalist
PROC: 027135Z Dilation of Coronary Artery, Two Arteries with Two Drug-eluting Intraluminal Devices, Percutaneous Approach (ICD-10-PCS; principal; 2024-06-29 16:35)
PROC: 4A023N7 Measurement of Cardiac Sampling and Pressure, Left Heart, Percutaneous Approach (ICD-10-PCS; 2024-06-29 16:35)
PROC: B2111ZZ Fluoroscopy of Multiple Coronary Arteries using Low Osmolar Contrast (ICD-10-PCS; 2024-06-29 16:35)
PROC: B241ZZ3 Ultrasonography of Multiple Coronary Arteries, Intravascular (ICD-10-PCS; 2024-06-29 16:35)
DX: I21.4 Non-ST elevation (NSTEMI) myocardial infarction (principal); T82.855A Stenosis of coronary artery stent, initial encounter; K85.90 Acute pancreatitis without necrosis or infection, unspecified; K81.1 Chronic cholecystitis; I50.22 Chronic systolic (congestive) heart failure; I11.0 Hypertensive heart disease with heart failure; F32.A Depression, unspecified; E03.9 Hypothyroidism, unspecified; E78.5 Hyperlipidemia, unspecified; I25.10 Atherosclerotic heart disease of native coronary artery without angina pectoris; K82.8 Other specified diseases of gallbladder; K59.00 Constipation, unspecified; Y71.1 Therapeutic (nonsurgical) and rehabilitative cardiovascular devices associated with adverse incidents; Z60.9 Problem related to social environment, unspecified; Z79.82 Long term (current) use of aspirin; Z79.02 Long term (current) use of antithrombotics/antiplatelets; Z79.890 Hormone replacement therapy; I25.2 Old myocardial infarction; Z95.5 Presence of coronary angioplasty implant and graft; Z95.1 Presence of aortocoronary bypass graft; Z87.891 Personal history of nicotine dependence; Z79.899 Other long term (current) drug therapy; Z86.0100 Personal history of colon polyps, unspecified
CPT/HCPCS: 36415; 71045; 71275; 74177; 76705; 78227; 80048; 80053; 82150; 83690; 83735; 83880; 84100; 84484; 85025; 85610; 85730; 92978; 92979; 93005; 93306; 93458; 94760; 96365; 96366; 96367; 96375; 99291

== ENCOUNTER 2024-07-07 21:10 | Observation (INO) | payer OTHER ==
[2024-07-07 21:32] LABS: Glucose,Whole Blood 128 mg/dL (70-110)
[2024-07-07 22:54] LABS: Basophils % (A) 0 %; Eosinophils # (A) 0.1 k/uL (0-0.7); Eosinophils % (A) 1 %; HCT 38.4 % (34.0-46.0); HGB 12.7 gm/dL (11.4-16.0); Lymphocytes # (A) 1.2 k/uL (1.0-4.8); Lymphocytes % (A) 14 %; MCH 30.5 pg (25.0-35.0); MCV 92.6 fL (80.0-100.0); Mean Platelet Volume 8.8; Monocytes # (A) 0.6 k/uL (0-1.0); Monocytes % (A) 7 %; Neutrophils # (A) 6.3 k/uL (1.3-7.7); Neutrophils % (A) 76 %; Platelet Count 267 k/uL (150-450); RBC 4.15 m/uL (3.80-5.40); RDW 12.7 % (11.5-15.5); WBC 8.3 k/uL (3.8-10.6)
--- NOTE | 2024-07-07 22:58 | XR ---
EXAMINATION TYPE: XR chest 2V DATE OF EXAM: 07/07/2024 CLINICAL HISTORY: Syncope TECHNIQUE: Frontal and lateral views of the chest are obtained. COMPARISON: Chest x-ray June 28, 2024 FINDINGS: Overlying sternal wires are redemonstrated. There is no suspicious new focal air space opa city, pleural effusion, or pneumothorax seen. The cardiac silhouette size remains within normal limi ts. Coronary artery stent or stents are redemonstrated. The osseous structures are intact. IMPRESSION: No acute cardiopulmonary process. [facility], , 07/07/2024 10:55 PM
[2024-07-07] MEDS: SODIUM CHLORIDE 0.9% 500 ML 500 ML IV ONE (22:59)
[2024-07-07] MEDS: diphenhydrAMINE 50 MG/ML 1 ML VIAL IVP STA (23:00)
[2024-07-07] MEDS: METOCLOPRAMIDE 5 MG/ML 2 ML VIAL IVP STA (23:00)
[2024-07-07 23:06] LABS: INR 0.9 (<1.2); Partial Thromboplastin Time 25.3 sec (22.0-30.0); Prothrombin Time 10.4 sec (10.0-12.5)
[2024-07-07 23:07] LABS: ALT 9 U/L (4-34); AST 31 U/L (14-36); African American GFR (CKD) 74 (>60 ml/min/1.73 sqM); Alkaline Phosphatase 90 U/L (38-126); Anion Gap 10 mmol/L; Blood Urea Nitrogen 27 mg/dL (7-17); Calcium 8.7 mg/dL (8.4-10.2); Carbon Dioxide 17 mmol/L (22-30); Chloride 109 mmol/L (98-107); Glucose 116 mg/dL (74-99); Magnesium 2.1 mg/dL (1.6-2.3); Non-African American GFR(CKD) 65 (>60 ml/min/1.73 sqM); Sodium 136 mmol/L (137-145); Total Bilirubin 0.9 mg/dL (0.2-1.3)
[2024-07-07 23:17] LABS: Potassium 4.4 mmol/L (3.5-5.1)
--- NOTE | 2024-07-08 00:44 | ED ---
General Adult HPI - General Chief complaint: Syncope Stated complaint: Syncope Time Seen by Provider: 07/07/24 21:33 Source: patient, EMS Mode of arrival: EMS Limitations: no limitations - History of Present Illness Initial comments: 58-year-old female who presents to the emergency department after a syncopal episode. Patient was at home when she started feeling lightheaded. She went to the kitchen table and significant other states that her head dropped to the table. She then almost fell out of her chair but he was able to catch her. When she came to approximately 15 seconds later she had several episodes of emesis. Patient continues to be nauseated. EMS was called. She was provided with 4 mg of Zofran. She denies having any chest pain or difficulty breathing. She recently had 2 stents placed. Does have history of extensive coronary disease with history of bypass and multiple stent placements. Patient denies any trauma from her syncopal episode. No shortness of breath. Denies any abdominal pain. States that she has not had an appetite. No fevers. Denies cough. No other alleviating, precipitating modifying factors - Related Data Home Medications Medication Instructions Recorded Confirmed Aspirin 81 mg PO PC-LUNCH 06/27/24 07/08/24 Clopidogrel [Plavix] 75 mg PO PC-LUNCH 06/27/24 07/08/24 Fluticasone Nasal [place] [Flonase 2 spr EA NOSTRIL DAILY 06/27/24 07/08/24 Nasal [place]] Levothyroxine Sodium [Synthroid] 137 mcg PO AC-BRKFST 06/27/24 07/08/24 Loratadine [Claritin] 10 mg PO DAILY 06/27/24 07/08/24 Sertraline [Zoloft] 100 mg PO DAILY 06/27/24 07/08/24 Multivitamins, Thera [Multivitamin 1 tab PO DAILY 07/08/24 07/08/24 (formulary)] Nitroglycerin Sl Tabs [Nitrostat] 0.4 mg SL Q5M PRN 07/08/24 07/08/24 Previous Rx's Medication Instructions Recorded Atorvastatin [Lipitor] 80 mg PO HS #30 tab 06/30/24 Folic Acid 1 mg PO DAILY #30 tab 06/30/24 Mag Hydrox/Al Hydrox/Simeth 30 ml PO Q4HR PRN ml 06/30/24 [Maalox] Thiamine [Vitamin B-1] 100 mg PO DAILY #30 tab 06/30/24 lisinopriL [Zestril] 10 mg PO BID #60 tab 06/30/24 Allergies Allergy/AdvReac Type Severity Reaction Status Date / Time bee venom protein (honey bee) Allergy Anaphylaxis Verified 07/08/24 10:45 Review of Systems ROS Statement: Those systems with pertinent positive or pertinent negative responses have been documented in the HPI. ROS Other: All systems not noted in ROS Statement are negative. Past Medical History Past Medical History: Heart Failure, Hyperlipidemia, Hypertension, Myocardial Infarction ([place]) Last Myocardial Infarction Date:: 2008 History of Any Multi-Drug Resistant Organisms: None Reported Past Surgical History: Coronary Bypass/CABG, Heart Catheterization With Stent Past Anesthesia/Blood Transfusion Reactions: No Reported Reaction Date of Last Stent Placement:: 2008 Past Psychological History: Anxiety, Depression Smoking Status: Former smoker Past Alcohol Use History: Occasional Past Drug Use History: Marijuana General Exam Limitations: no limitations General appearance: alert, in no apparent distress Head exam: Present: atraumatic, normocephalic, normal inspection Eye exam: Present: normal appearance, PERRL, EOMI. Absent: scleral icterus, conjunctival injection, periorbital swelling ENT exam: Present: normal exam, mucous membranes moist Neck exam: Present: normal inspection. Absent: tenderness, meningismus, lymphadenopathy Respiratory exam: Present: normal lung sounds bilaterally. Absent: respiratory distress, wheezes, rales, rhonchi, stridor Cardiovascular Exam: Present: bradycardia, normal heart sounds. Absent: systolic murmur, diastolic murmur, rubs, gallop, clicks GI/Abdominal exam: Present: soft, normal bowel sounds. Absent: distended, tenderness, guarding, rebound, rigid Extremities exam: Present: normal inspection, full ROM, normal capillary refill. Absent: tenderness, pedal edema, joint swelling, calf tenderness Back exam: Present: normal inspection Neurological exam: Present: alert, oriented X3, CN II-XII intact Psychiatric exam: Present: normal affect, normal mood Skin exam: Present: warm, dry, intact, normal color. Absent: rash Course Vital Signs 07/07/24 07/07/24 07/08/24 21:11 22:20 01:31 Temperature 97.9 F Pulse Rate 56 L 59 L 62 Respiratory 18 18 16 Rate Blood Pressure 142/68 121/57 145/85 O2 Sat by Pulse 100 97 94 L Oximetry 07/08/24 03:52 Temperature Pulse Rate 60 Respiratory 18 Rate Blood Pressure 117/54 O2 Sat by Pulse 98 Oximetry Medical Decision Making - Medical Decision Making Was pt. sent in by a medical professional or institution ([facility], WIRE REPAIRER, urgent care, hospital, or group home...) When possible be specific @ -No Did you speak to anyone other than the patient for history (EMS, parent, family, police, friend...)? What history was obtained from this source @ -Spoke with EMS and significant other for history Did you review nursing and triage notes (agree or disagree)? Why? @ -I reviewed and agree with nursing and triage notes Were old charts reviewed (outside hosp., previous admission, EMS record, old EKG, old radiological studies, urgent care reports/EKG's, group home records)? Report findings @ -I reviewed discharge summary from June 30 where patient was hospitalized and had stents placed Differential Diagnosis (chest pain, altered mental status, abdominal pain women, abdominal pain men, vaginal bleeding, weakness, fever, dyspnea, syncope, headache, dizziness, GI bleed, back pain, seizure, CVA, palpatations, mental health, musculoskeletal)? @ -Differential Syncope: Valvular disease, hypertrophic cardiomyopathy, pulmonary embolism, tamponade, tachycardia, bradycardia, [place], hypovolemia, hemorrhage, dissection, anemia, intracranial hemorrhage, seizure, hypoglycemia, carbon monoxide poisoning, this is not meant to be an all-inclusive list. EKG interpreted by me (3pts min.). @ -Yes and demonstrates sinus bradycardia with a rate of 52. MT interval 194. QRS 92. QTc of 431. No acute ST segment elevations or depressions. No signs of high degree block X-rays interpreted by me (1pt min.). @ -Yes and demonstrates no acute process CT interpreted by me (1pt min.). @ -None done U/S interpreted by me (1pt. min.). @ -None done What testing was considered but not performed or refused? (CT, X-rays, U/S, l abs)? Why? @ -None What meds were considered but not given or refused? Why? @ -None Did you discuss the management of the patient with other professionals (professionals i.e. , JOCE, WIRE REPAIRER, lab, RT, psych nurse, criminal justice social worker, operations supervisor, teacher, nursing officer, block and case maker)? Give summary @ -Spoke with Pooja from [facility] for admission Was smoking cessation discussed for >3mins.? @ -No Was critical care preformed (if so, how long)? @ -No Were there social determinants of health that impacted care today? How? (Homelessness, low income, unemployed, alcoholism, drug addiction, transportation, low edu. Level, literacy, decrease access to med. care, longterm, rehab)? @ -No Was there de-escalation of care discussed even if they declined (Discuss DNR or withdrawal of care, Hospice)? DNR status @ -No What co-morbidities impacted this encounter? (DM, HTN, Smoking, COPD, CAD, Cancer, CVA, ARF, Chemo, Hep., AIDS, mental health diagnosis, sleep apnea, morbid obesity)? @ -Coronary artery disease with recent stent placement Was patient admitted / discharged? Hospital course, mention meds given and ro council, prescriptions, significant lab abnormalities, going to OR and other pertinent info. @ -Upon arrival patient seen and evaluated in bed 15. Thorough history and physical exam was performed. Patient placed on continuous pulse ox and cardiac monitoring. IV had been established. Laboratory studies are conducted. She was given 4 mg of Zofran. Continues to report nausea and therefore she is given 25 mg of Benadryl and 10 mg of Reglan. Chest x-ray was performed. Patient remains bradycardic on monitor. I did discuss results with the patient. I do feel that the patient should be hospitalized overnight for cardiac monitoring. There is concern for dysrhythmia in the setting of her advanced cardiac disease. Patient was agreeable to admission. I spoke with Pooja from [facility] who will ad veronica the patient Undiagnosed new problem with uncertain prognosis? @ -Yes Drug Therapy requiring intensive monitoring for toxicity (Heparin, Nitro, Insulin, Cardizem)? @ -No Were any procedures done? @ -No Diagnosis/symptom? @ -Acute syncope, recent hospitalization with stent placement, history of coronary disease Acute, or Chronic, or Acute on Chronic? @ -Acute Uncomplicated (without systemic symptoms) or Complicated (systemic symptoms)? @ -Complicated Side effects of treatment? @ -No Exacerbation, Progression, or Severe Exacerbation? @ -No Poses a threat to life or bodily function? How? (Chest pain, [place], [place], pneumonia, PE, COPD, DKA, ARF, appy, cholecystitis, CVA, Diverticulitis, Homicidal, Suicidal, threat to staff... and all critical care pts) @ -No - Lab Data Result diagrams: 07/07/24 21:20 07/07/24 21:20 Lab Results 07/07/24 07/07/24 07/07/24 Range/Units 21:20 21:20 21:20 WBC 8.3 (3.8-10.6) k/uL RBC 4.15 (3.80-5.40) m/uL Hgb 12.7 (11.4-16.0) gm/dL Hct 38.4 (34.0-46.0) % MCV 92.6 (80.0-100.0) fL MCH 30.5 (25.0-35.0) pg MCHC 33.0 (31.0-37.0) g/dL RDW 12.7 (11.5-15.5) % Plt Count 267 (150-450) k/uL MPV 8.8 Neutrophils % 76 % Lymphocytes % 14 % Monocytes % 7 % Eosinophils % 1 % Basophils % 0 % Neutrophils # 6.3 (1.3-7.7) k/uL Lymphocytes # 1.2 (1.0-4.8) k/uL Monocytes # 0.6 (0-1.0) k/uL Eosinophils # 0.1 (0-0.7) k/uL Basophils # 0.0 (0-0.2) k/uL PT 10.4 (10.0-12.5) sec INR 0.9 (<1.2) APTT 25.3 (22.0-30.0) sec Sodium 136 L (137-145) mmol/L Potassium 4.4 (3.5-5.1) mmol/L Chloride 109 H (98-107) mmol/L Carbon Dioxide 17 L (22-30) mmol/L Anion Gap 10 mmol/L BUN 27 H (7-17) mg/dL Creatinine 0.96 (0.52-1.04) mg/dL Est GFR (CKD-EPI)AfAm 74 (>60 ml/min/1.73 sqM) Est GFR (CKD-EPI)NonAf 65 (>60 ml/min/1.73 sqM) Glucose 116 H (74-99) mg/dL POC Glucose (mg/dL) (70-110) mg/dL POC Glu [employer] ID Calcium 8.7 (8.4-10.2) mg/dL Magnesium 2.1 (1.6-2.3) mg/dL Total Bilirubin 0.9 (0.2-1.3) mg/dL AST 31 (14-36) U/L ALT 9 (4-34) U/L Alkaline Phosphatase 90 (38-126) U/L Troponin I (0.000-0.034) ng/mL Total Protein 7.0 (6.3-8.2) g/dL Albumin 4.0 (3.5-5.0) g/dL 07/07/24 07/07/24 Range/Units 21:20 21:25 WBC (3.8-10.6) k/uL RBC (3.80-5.40) m/uL Hgb (11.4-16.0) gm/dL Hct (34.0-46.0) % MCV (80.0-100.0) fL MCH (25.0-35.0) pg MCHC (31.0-37.0) g/dL RDW (11.5-15.5) % Plt Count (150-450) k/uL MPV Neutrophils % % Lymphocytes % % Monocytes % % Eosinophils % % Basophils % % Neutrophils # (1.3-7.7) k/uL Lymphocytes # (1.0-4.8) k/uL Monocytes # (0-1.0) k/uL Eosinophils # (0-0.7) k/uL Basophils # (0-0.2) k/uL PT (10.0-12.5) sec INR (<1.2) APTT (22.0-30.0) sec Sodium (137-145) mmol/L Potassium (3.5-5.1) mmol/L Chloride (98-107) mmol/L Carbon Dioxide (22-30) mmol/L Anion Gap mmol/L BUN (7-17) mg/dL Creatinine (0.52-1.04) mg/dL Est GFR (CKD-EPI)AfAm (>60 ml/min/1.73 sqM) Est GFR (CKD-EPI)NonAf (>60 ml/min/1.73 sqM) Glucose (74-99) mg/dL POC Glucose (mg/dL) 128 H (70-110) mg/dL POC Glu [employer] MIKALA Soria Calcium (8.4-10.2) mg/dL Magnesium (1.6-2.3) mg/dL Total Bilirubin (0.2-1.3) mg/dL AST (14-36) U/L ALT (4-34) U/L Alkaline Phosphatase (38-126) U/L Troponin I <0.012 (0.000-0.034) ng/mL Total Protein (6.3-8.2) g/dL Albumin (3.5-5.0) g/dL Disposition Clinical Impression: Syncope, Bradycardia Disposition: ADMITTED IP TO THIS HOSP Condition: Stable Is patient prescribed a controlled substance at d/c from ED?: No Time of Disposition: 00:44 Decision to Admit Reason: Admit from EC Decision Date: 07/08/24 Decision Time: 00:44
[2024-07-08] MEDS ORDERED: NALOXONE 0.4 MG/ML 1 ML VIAL IV PRN (00:45)
[2024-07-08] MEDS: ACETAMINOPHEN TAB 325 MG TAB PO PRN (07:03)
[2024-07-08 07:16] VITALS: RESP 16
[2024-07-08] MEDS: SODIUM CHLORIDE 0.9% 1,000 ML IV SCH (09:16)
--- NOTE | 2024-07-08 10:10 | P.CRDCN ---
History of Present Illness Consult date: 07/08/24 History of present illness: HISTORY OF PRESENTING ILLNESS 58-year-old female with past medical history of CAD status post CABG, hypertension dyslipidemia hypothyroidism. She recently had PCI done by Dr. Wasserman to her mid RCA in-stent stenosis and proximal LCx. She has patent PALMER to LAD. She presented to the hospital because of increased GI upset, nausea and vomiting along with an episode of feeling lightheaded and passing out for 15 seconds. She was wanting to go to the kitchen to make some food where she felt nauseous and felt lightheaded and passed out for 15 seconds. She denies having any chest pains palpitations before or after the event. It was an unwitnessed event. She did not report hitting her head. Her echocardiogram showed mild cardiomyopathy of EF of 45 to 50%, no major valvular abnormalities along with moderate mitral regurgitation. REVIEW OF SYSTEMS 14 point review of system is negative except what is mentioned above in HPI. PHYSICAL EXAMINATION Vital signs reviewed. Head: Normocephalic. Eyes: Sclerae nonicteric. Neck: Brisk carotid upstroke, no jugular venous distention. Lungs: Clear to auscultation. Heart: Regular rate and rhythm, S1-S2, no S3, systolic murmur Abdomen: Soft nontender, positive bowel sounds. Extremities: No edema, intact distal pulses. Neuro: Alert, oritented, no focal deficits. Detailed neuro exam was not performed. ASSESSMENT Lightheadedness and syncope, unwitnessed event. Telemetry ECG and orthostatic vital signs were nonrevealing Nausea and vomiting History of intussusception Mild cardiomyopathy EF 45 to 50%, likely ischemic CAD status post recent PCI to RCA and LCx History of CAD status post CABG PLAN No signs of ACS. No signs of arrhythmias on telemetry ECG. No signs of congestive heart failure Resume her dual antiplatelet therapy, statin, lisinopril. She is not on any beta-milton because of low resting heart rate Would have medical team her nausea vomiting is resolved. Would have medical doctors evaluate her nausea and vomiting and GI issues. She is cleared from cardiology to go home. Would recommend a 14-day Holter monitor to be picked up from Wednesday. I gave her the details instructions to do so. Michael Vides MD, FACC, RPVI Thank you for allowing [facility] to participate in this patient's care. Feel free to reach out in case of any followup questions. Past Medical History Past Medical History: Heart Failure, Hyperlipidemia, Hypertension, Myocardial Infarction ([place]), Syncope, Thyroid Disorder Last Myocardial Infarction Date:: 2023 History of Any Multi-Drug Resistant Organisms: None Reported Past Surgical History: Coronary Bypass/CABG, Heart Catheterization With Stent Additional Past Surgical History / Comment(s): 14 total stents Past Anesthesia/Blood Transfusion Reactions: No Reported Reaction Date of Last Stent Placement:: 2023 Past Psychological History: Anxiety, Depression Smoking Status: Former smoker Past Alcohol Use History: Occasional Past Drug Use History: Marijuana Medications and Allergies Home Medications Medication Instructions Recorded Confirmed Type Aspirin 81 mg PO PC-LUNCH 06/27/24 06/27/24 History Clopidogrel [Plavix] 75 mg PO PC-LUNCH 06/27/24 06/27/24 History Fluticasone Nasal [place] [Flonase 2 spr EA NOSTRIL DAILY 06/27/24 06/27/24 History Nasal [place]] Levothyroxine Sodium [Synthroid] 137 mcg PO AC-BRKFST 06/27/24 06/27/24 History Loratadine [Claritin] 10 mg PO DAILY 06/27/24 06/27/24 History Sertraline [Zoloft] 100 mg PO DAILY 06/27/24 06/27/24 History Atorvastatin [Lipitor] 80 mg PO HS #30 tab 06/30/24 Rx Folic Acid 1 mg PO DAILY #30 tab 06/30/24 Rx Mag Hydrox/Al Hydrox/Simeth 30 ml PO Q4HR PRN ml 06/30/24 Rx [Maalox] Multivitamins, Thera [Multivitamin 1 each PO DAILY #30 tab 06/30/24 Rx (formulary)] Nitroglycerin Sl Tabs [Nitrostat] 0.4 mg SUBLINGUAL Q5M PRN #15 tab 06/30/24 Rx Thiamine [Vitamin B-1] 100 mg PO DAILY #30 tab 06/30/24 Rx lisinopriL [Zestril] 10 mg PO BID #60 tab 06/30/24 Rx Allergies Allergy/AdvReac Type Severity Reaction Status Date / Time bee venom protein (honey bee) Allergy Anaphylaxis Verified 06/27/24 18:17 Physical Exam Vitals: Vital Signs Temp Pulse Pulse Pulse Pulse Pulse Resp 07/08/24 06:50 98.3 F 61 70 58 L 16 07/08/24 04:59 98.2 F 62 17 07/08/24 03:52 60 18 07/08/24 01:31 62 16 07/07/24 22:20 59 L 18 07/07/24 21:11 97.9 F 56 L 18 BP BP BP BP BP Pulse Ox 07/08/24 06:50 100/65 96/64 116/59 96 07/08/24 04:59 115/58 95 07/08/24 03:52 117/54 98 07/08/24 01:31 145/85 94 L 07/07/24 22:20 121/57 97 07/07/24 21:11 142/68 100 Intake and Output 07/07/24 07/08/24 07/08/24 22:59 06:59 14:59 Other: # Voids 1 Weight 71.668 kg 71.668 kg Results 07/07/24 21:20 07/07/24 21:20 Cardiac Enzymes 07/07/24 07/07/24 07/08/24 Range/Units 21:20 21:20 04:51 AST 31 (14-36) U/L Troponin I <0.012 <0.012 (0.000-0.034) ng/mL Coagulation 07/07/24 Range/Units 21:20 PT 10.4 (10.0-12.5) sec APTT 25.3 (22.0-30.0) sec CBC 07/07/24 Range/Units 21:20 WBC 8.3 (3.8-10.6) k/uL RBC 4.15 (3.80-5.40) m/uL Hgb 12.7 (11.4-16.0) gm/dL Hct 38.4 (34.0-46.0) % Plt Count 267 (150-450) k/uL Comprehensive Metabolic Panel 07/07/24 Range/Units 21:20 Sodium 136 L (137-145) mmol/L Potassium 4.4 (3.5-5.1) mmol/L Chloride 109 H (98-107) mmol/L Carbon Dioxide 17 L (22-30) mmol/L BUN 27 H (7-17) mg/dL Creatinine 0.96 (0.52-1.04) mg/dL Glucose 116 H (74-99) mg/dL Calcium 8.7 (8.4-10.2) mg/dL AST 31 (14-36) U/L ALT 9 (4-34) U/L Alkaline Phosphatase 90 (38-126) U/L Total Protein 7.0 (6.3-8.2) g/dL Albumin 4.0 (3.5-5.0) g/dL Current Medications Generic Name Dose Route Start Last Admin Trade Name Freq PRN Reason Stop Dose Admin Acetaminophen 650 mg 07/08/24 06:58 07/08/24 07:03 Acetaminophen Tab 325 Mg Tab PO 650 mg Q6HR PRN Administration Fever and/ or Pain Aspirin 81 mg 07/08/24 10:00 Aspirin 81 Mg PO DAILY [facility] Atorvastatin Calcium 40 mg 07/08/24 21:00 Atorvastatin 40 Mg Tab PO HS [facility] Clopidogrel Bisulfate 75 mg 07/08/24 10:00 Clopidogrel 75 Mg Tab PO DAILY [facility] Sodium Chloride 1,000 mls @ 100 mls/hr 07/08/24 07:45 07/08/24 09:16 Saline 0.9% IV 100 mls/hr .Q10H POLINA Administration Naloxone HCl 0.2 mg 07/08/24 00:45 Naloxone 0.4 Mg/Ml 1 Ml Vial IV Q2M PRN Opioid Reversal Intake and Output 07/07/24 07/08/24 07/08/24 22:59 06:59 14:59 Other: # Voids 1 Weight 71.668 kg 71.668 kg 07/07/24 21:20 07/07/24 21:20
[2024-07-08] MEDS: CLOPIDOGREL 75 MG TAB PO SCH (10:59)
[2024-07-08] MEDS: ASPIRIN 81 MG PO SCH (10:59)
[2024-07-08] MEDS: SODIUM CHLORIDE 0.9% 1,000 ML IV ONE (12:40)
[2024-07-08] MEDS: DOCUSATE 100 MG CAP PO SCH (12:40)
[2024-07-08] MEDS: polyethylene glycoL 3350 17 GM POWD.PACK PO SCH (12:40)
[2024-07-08 14:09] VITALS: TEMP 98
[2024-07-08 15:15] VITALS: BP 139/69; PULSE 58
[2024-07-08] MEDS ORDERED: ATORVASTATIN 40 MG TAB PO SCH (21:00)
--- NOTE | 2024-07-09 23:39 | P.HPIM ---
History of Present Illness Please consider this note as combined H&P and discharge summary Diagnoses: Syncope secondary to orthostatic hypotension, improved with IV bolus Hypertension, present on admission most likely secondary to significant nausea vomiting and diarrhea of 1 day duration which is currently resolved. Improved with hydration History of non-STEMI status post PCI to left circumflex artery and RCA on 06/29 Hypertension Hyperlipidemia CHF without acute exacerbation Anxiety, not an active issue Hospital course: This is a pleasant 58 years old female with past medical history of multiple medical problems as below including Heart Failure, Hyperlipidemia, Hypertension, Myocardial Infarction (HI), Syncope, hypothyroidism, coronary artery disease status post CABG and stent. Patient presents with syncope, also patient has recent stent placement. Patient states she was trying to get up from sitting position when she felt dizzy and fainted, she passed out for 5 seconds as per at bedside. There was no seizure-like activity She woke up immediately without confusion She came to the hospital when asked her she denies chest pain or dyspnea or coughing. No headache dizziness or weakness or limb numbness She is complaining from constipation and requesting laxative Also she vomited nonstop yesterday which was bilious but currently stopped. Last bowel movement was 1 day ago but currently denies any abdominal pain patient she feels hungry and she wants to eat. This morning patient she was doing well lying in bed with no significant complaint. She was seen range mechanic earlier in the morning who cleared her for discharge, patient told me she is willing to go home today. On admission patient was noted to have positive orthostatic vitals with systolic blood pressure dropped from 116/59 down to 96/64 on standing. EKG was showing sinus bradycardia at 52 Chest x-ray was negative for acute process She was afebrile and hemodynamically stable other than that Labs showed sodium of 136 while rest of CBC, BMP and liver enzymes were unremarkable. INR 0.9 Troponin x 2 are less than 0.012. Because the patient was adamant to go home today, we will give her a liter of normal saline and after the bolus we checked her orthostatic vitals which resolved and no more orthostatic drop in blood pressure. Also would let the patient eat lunch which she tolerates well with no problem. Also patient was started on Colace and MiraLAX which she took with no problem Currently patient is back to her normal self and she denies any other complaints and still eager to go home Patient was treated for discharge by range mechanic as above Problems and management plan were discussed with the patient and he verbalized understanding and acceptance Patient was found stable and can be discharged home in guarded prognosis however he needs follow-up as an outpatient. Patient was instructed to follow up with PCP within one week and patient agrees Patient was instructed to follow-up with range mechanic Dr. Vides in 1 to 2 weeks and she agrees. Because of her GI symptoms patient was recommended to follow-up with GI Dr. Sullivan in 1 to 2 weeks after discharge and she agrees Physical exam Gen: patient is a AAOx3, no distress CVS: S1-S2, RRR, no murmur Lungs: B/L CTA, no wheezing Abdomen: soft, no distention, no tenderness, positive bowel sounds Extremity: no leg edema or induration Time spent more than 35 minutes Review of Systems Review of systems CONSTITUTIONAL: No fever, no malaise, no fatigue. HEENT: No recent visual problems or hearing problems. Denied any sore throat. CARDIOVASCULAR: No orthopnea, PND, no palpitations, no syncope. PULMONARY: No shortness of breath, no cough, no hemoptysis. GASTROINTESTINAL: No diarrhea, no nausea, no vomiting, no abdominal pain. Norm oactive bowel sounds. NEUROLOGICAL: No headaches, no weakness, no numbness. HEMATOLOGICAL: Denies any bleeding or petechiae. GENITOURINARY: Denies any burning micturition, frequency, or urgency. MUSCULOSKELETAL/RHEUMATOLOGICAL: Denies any joint pain, swelling, or any muscle pain. ENDOCRINE: Denies any polyuria or polydipsia. Past Medical History Past Medical History: Heart Failure, Hyperlipidemia, Hypertension, Myocardial Infarction (HI), Syncope, Thyroid Disorder Last Myocardial Infarction Date:: 2023 History of Any Multi-Drug Resistant Organisms: None Reported Past Surgical History: Coronary Bypass/CABG, Heart Catheterization With Stent Additional Past Surgical History / Comment(s): 14 total stents Past Anesthesia/Blood Transfusion Reactions: No Reported Reaction Date of Last Stent Placement:: 2023 Past Psychological History: Anxiety, Depression Smoking Status: Former smoker Past Alcohol Use History: Occasional Past Drug Use History: Marijuana Medications and Allergies Home Medications Medication Instructions Recorded Confirmed Type Aspirin 81 mg PO PC-LUNCH 06/27/24 07/08/24 History Clopidogrel [Plavix] 75 mg PO PC-LUNCH 06/27/24 07/08/24 History Fluticasone Nasal [place] [Flonase 2 spr EA NOSTRIL DAILY 06/27/24 07/08/24 History Nasal [place]] Levothyroxine Sodium [Synthroid] 137 mcg PO AC-BRKFST 06/27/24 07/08/24 History Loratadine [Claritin] 10 mg PO DAILY 06/27/24 07/08/24 History Sertraline [Zoloft] 100 mg PO DAILY 06/27/24 07/08/24 History Atorvastatin [Lipitor] 80 mg PO HS #30 tab 06/30/24 07/08/24 Rx Folic Acid 1 mg PO DAILY #30 tab 06/30/24 07/08/24 Rx Mag Hydrox/Al Hydrox/Simeth 30 ml PO Q4HR PRN ml 06/30/24 07/08/24 Rx [Maalox] Thiamine [Vitamin B-1] 100 mg PO DAILY #30 tab 06/30/24 07/08/24 Rx lisinopriL [Zestril] 10 mg PO BID #60 tab 06/30/24 07/08/24 Rx Docusate [Colace] 100 mg PO BID #60 cap 07/08/24 Rx Multivitamins, Thera [Multivitamin 1 tab PO DAILY 07/08/24 07/08/24 History (formulary)] Nitroglycerin Sl Tabs [Nitrostat] 0.4 mg SL Q5M PRN 07/08/24 07/08/24 History polyethylene glycoL 3350 [Miralax] 17 gm PO DAILY PRN 3 Days #3 packet 07/08/24 Rx Allergies Allergy/AdvReac Type Severity Reaction Status Date / Time bee venom protein (honey bee) Allergy Anaphylaxis Verified 07/08/24 10:45 Physical Exam Vitals: Vital Signs Temp Pulse Pulse Pulse Pulse Pulse Resp 07/08/24 06:50 98.3 F 61 70 58 L 16 07/08/24 04:59 98.2 F 62 17 07/08/24 03:52 60 18 07/08/24 01:31 62 16 07/07/24 22:20 59 L 18 07/07/24 21:11 97.9 F 56 L 18 BP BP BP BP BP Pulse Ox 07/08/24 06:50 100/65 96/64 116/59 96 07/08/24 04:59 115/58 95 07/08/24 03:52 117/54 98 07/08/24 01:31 145/85 94 L 07/07/24 22:20 121/57 97 07/07/24 21:11 142/68 100 Intake and Output 07/07/24 07/08/24 07/08/24 22:59 06:59 14:59 Other: # Voids 1 Weight 71.668 kg 71.668 kg GENERAL: The patient is alert and oriented x3, not in any acute distress. Well developed, well nourished. HEENT: Pupils are round and equally reacting to light. EOMI. No scleral icterus. No conjunctival pallor. Normocephalic, atraumatic. No pharyngeal erythema. No thyromegaly. CARDIOVASCULAR: S1 and S2 present. No murmurs, rubs, or gallops. PULMONARY: Chest is clear to auscultation, no wheezing , no crackles. ABDOMEN: Soft, nontender, nondistended, normoactive bowel sounds. No palpable organomegaly. MUSCULOSKELETAL: No joint swelling or deformity. EXTREMITIES: No cyanosis, clubbing, or pedal edema. NEUROLOGICAL: Gross neurological examination did not reveal any focal deficits. SKIN: No rashes. no petechiae. Results CBC & Chem 7: 07/07/24 21:20 07/07/24 21:20 Labs: Abnormal Lab Results - Last 24 Hours (Table) 07/07/24 07/07/24 Range/Units 21:20 21:25 Sodium 136 L (137-145) mmol/L Chloride 109 H (98-107) mmol/L Carbon Dioxide 17 L (22-30) mmol/L BUN 27 H (7-17) mg/dL Glucose 116 H (74-99) mg/dL POC Glucose (mg/dL) 128 H (70-110) mg/dL
== END 2024-07-08 16:55 | disposition home or self-care (01) ==
LOC: EC 21:10 → 6NMEDSUR 07-08 00:52
PROVIDERS: ADMIT Hospitalist; ATTEND Hospitalist
DX: I95.1 Orthostatic hypotension (principal); I25.10 Atherosclerotic heart disease of native coronary artery without angina pectoris; I11.0 Hypertensive heart disease with heart failure; I50.9 Heart failure, unspecified; E78.5 Hyperlipidemia, unspecified; T82.855A Stenosis of coronary artery stent, initial encounter; I42.9 Cardiomyopathy, unspecified; I34.0 Nonrheumatic mitral (valve) insufficiency; E03.9 Hypothyroidism, unspecified; R00.1 Bradycardia, unspecified; K59.00 Constipation, unspecified; R11.2 Nausea with vomiting, unspecified; R19.7 Diarrhea, unspecified; F41.9 Anxiety disorder, unspecified; Z79.02 Long term (current) use of antithrombotics/antiplatelets; Z79.82 Long term (current) use of aspirin; Z79.890 Hormone replacement therapy; Z79.899 Other long term (current) drug therapy; Z91.030 Bee allergy status; I25.2 Old myocardial infarction; Z95.1 Presence of aortocoronary bypass graft; Z95.5 Presence of coronary angioplasty implant and graft; Z87.891 Personal history of nicotine dependence
CPT/HCPCS: 96374; 96375; 99285; 36415; 93005; 80053; 83735; 84484 ×2; 85025; 85610; 85730; 71046; G0378; J1200; J2765